=== PATIENT | female | born 1955 | race Caucasian/White ===

== ENCOUNTER 2016-09-14 20:20 | Emergency (ER) | payer OTHER ==
[~2016-09-14] VITALS: Ht 152.4 cm; Wt 75.0 kg
[~2016-09-14 20:20] MED LIST: ATOR20TA65 PO; CHOL2000 PO; Hydrocodone/Acetaminophen PO; Ibuprofen PO; MULT-892 PO; OMEG1CAP5 PO; RES15 PO; UBID1CAP52 PO
[2016-09-14 20:23] VITALS: BP 186/95; PULSE 84; RESP 20; O2SAT 98
--- NOTE | 2016-09-14 20:39 | ED.REPORT ---
HPI-Chest Pain 40 and Over Date of Service Sep 14, 2016 ED Provider: Cesario Esteves MD Patient is a 61 year old male who presents to the ED complaining of dull, achy, 4/10, constant, midline chest pain onset last night that is worsening today. She denies SOB, diaphoresis, or any other symptoms. She did not take aspirin today. She was admitted for chest pain with a negative stress test in 2012. She denies any recent illness. Nursing Notes Stated Complaint: CHEST PAIN Chief Complaint: Chest Pain Nursing Notes Reviewed: Yes Allergies: Coded Allergies: No Known Allergies (Verified , 06/01/05) Scheduled Atorvastatin Calcium (Atorvastatin Calcium) 20 Mg Tablet 20 MG PO DAILY Cholecalciferol (Vitamin D3) (Vitamin D) 2,000 Unit Capsule 2,000 UNIT PO DAILY Famotidine (Pepcid) 40 Mg Tablet 40 MG PO BID Multivitamin (Daily Value) 1 Each Tablet 1 EACH PO DAILY Ubidecarenone/Vit E Acetate (Co Q-10 100 mg Softgel) 1 Each Capsule 1 EACH PO DAILY Miscellaneous Medications Lactobacillus Combination No.4 (Probiotic) 1 Each Capsule 1 EACH PO Davey-3 Fatty Acids/Fish Oil (Fish Oil 1,200 mg Softgel) 1 Each Capsule 1 EACH PO Turmeric Root Extract (Turmeric) 500 Mg Capsule Unknown Dose PO General Time Seen by MD: 20:36 Chief Complaint Chest pain Hx Obtained From: Patient Arrived By: Walk-in Sudden in Onset?: Yes Onset Occurred: Yesterday Symptom Duration: Since onset Quality: Aching Past Medical History Past Medical History endometriosis Past Surgical History L shoulder D&C Reports: Cholecystectomy Reports: Tubal ligation Smoking History Never Smoker Social History Other Social History: Good social support Ambulatory Status Independent Review of Systems Respiratory: Denies: Shortness of breath Cardiovascular: Reports: Chest pain Skin: Denies Diaphoresis Complete sys rev & neg: except as marked. Physical Exam Initial Vital Signs Vital Signs (First) Date Time Temp Pulse Resp B/P Pulse Ox O2 Delivery O2 Flow Rate FiO2 09/14/16 20:23 36.1 84 20 186/95 98 Room Air Initial VS: Reviewed Head / Eyes: Atraumatic, Normocephalic Neck: Full range of motion Skin: Warm, Dry Neurologic: Alert, Oriented, Nonfocal Psychiatric: Mood/affect normal, Behavior normal, Normal thought content General/Constitutional: Awake, Alert, No acute distress, Well developed Respiratory / Chest: Breath sounds NL, Breath sounds = bilat, No respiratory distress Cardiovascular: Heart rate NL, Regular rhythm, Heart sounds NL, No gallop, No murmurs, No rubs Abdomen: Soft, Non-tender Lower Extremity / Pelvis / MS: Inspection NL, Tendon function NL Interpretation & Diagnostics Lab Results Interpretation Result Diagram: 09/14/16203909/14/162039 Test 09/14/16 20:40 09/14/16 22:45 White Blood Count 7.0th/mm3 (3.8-10.1) Red Blood Count 4.43mil/mm3 (3.90-5.20) Hemoglobin 14.3g/dL (12.0-15.6) Hematocrit 40.7% (35.0-46.0) Mean Corpuscular Volume 91.9fL (81-100) Mean Corpuscular Hemoglobin 32.3pg (27.0-35.0) Mean Corpuscular Hemoglobin Concent 35.1% (32.0-37.0) Red Cell Distribution Width 12.1% (12.3-15.4) Platelet Count 270bil/L (150-400) Neutrophils (%) (Auto) 53.6% (40-74) Lymphocytes (%) (Auto) 37.7% (14-46) Monocytes (%) (Auto) 6.3% (4-12) Eosinophils (%) (Auto) 2.0% (0-5) Basophils (%) (Auto) 0.3% (0-3) D-Dimer < 0.5mg/L (<0.50) Sodium Level 142mEq/L (134-144) Potassium Level 3.7mEq/L (3.5-5.2) Chloride Level 100mEq/L (97-108) Carbon Dioxide Level 28mmol/L (18-29) Blood Urea Nitrogen 12mg/dL (6-24) Creatinine 0.93mg/dL (0.57-1.00) Estimat Glomerular Filtration Rate 88mL/min (>59) Glucose Level 110mg/dL (60-99) Calcium Level 9.9mg/dL (8.5-10.1) Magnesium Level 2.2mg/dL (1.6-2.6) Total Bilirubin 0.4mg/dL (0.0-1.2) Aspartate Amino Transf (AST/SGOT) 23U/L (0-50) Alanine Aminotransferase (ALT/SGPT) 32U/L (0-32) Alkaline Phosphatase 72U/L (25-165) Total Protein 7.1g/dL (6.4-8.4) Albumin 4.7g/dL (3.4-5.0) Hold Leon Top Tube Received (Received) Troponin T < 0.010ug/L (0.0-0.011) ECG Interpretation ECG Interpretation: Sinus rate 80 Time: 20:52 Interpreted by: ED physician X-Ray Chest Interpretation Chest Xray Interpretation: IMPRESSION: Acute disease is not seen the upright portable chest. Dictated by: Cameron Aldana M.D. on 09/14/2016 at 21:00 Approved by: Cameron Aldana M.D. on 09/14/2016 at 21:01 View: Portable, 1 view Interpretation / Wet Read by: Interpret - Radiologist Re-Eval/Medical Decision Time of Eval: 22:12 Re-Evaluation/Progress Note: Rechecked patient. She reports she has had pain in her R calf since an exercise class and has been sore for a few days. Time of Eval: 23:35 Patient Status: Condition improved Re-Evaluation/Progress Note: Rechecked patient. Still experiencing mild chest pain. Discussed lab and imaging results. Discussed plan for discharge. Patient understands and agrees with plan. All questions addressed at this time. Counseled Regarding: Diagnosis, Lab results, Need for follow-up, When/why to return to ED Discharge & Departure Primary Impression: Non-cardiac chest pain Disposition: Home Patient Instructions: Esophageal Spasm (ED), Chest Pain (ED) Additional Instructions: Emergency Department evaluation included review, examination, labs, chest x-ray ECG and review of past records. No serious cause for chest pain is identified this evening. Given previous negative stress test normal ECG tonight and normal serial labs for heart muscle damage this is felt very unlikely to be from your heart. We advised taking Pepcid 40 mg daily for possible esophageal spasm. May use Tylenol as needed for pain. Return to emergency department for increasing chest pain shortness of breath or fevers. Follow up with primary care next week. Referrals: Natty Rodríguez ND (PCP) Scribe Attestation Portions of this note were transcribed by Paula Nixon. I, Dr. Esteves personally performed the history, physical exam and medical decision-making; I reviewed and confirmed the accuracy of the information in the transcribed note. Signed by: Paula Nixon 09/14/16, 3506 copies to: Natty Rodríguez ND, Donald L MD Sep 14, 2016 20:39 PAULA NIXON Sep 14, 2016 20:46
[2016-09-14 20:55] LABS: BASOPHILS % (AUTO) 0.3 % (0-3); MONOCYTES % (AUTO) 6.3 % (4-12); Mean Corpuscular Hemoglobin 32.3 pg (27.0-35.0); Mean Corpuscular Volume 91.9 fL (81-100); NEUTROPHILS % (AUTO) 53.6 % (40-74); Platelet Count 270 bil/L (150-400)
[2016-09-14 20:57] VITALS: BP 143/64; PULSE 89; RESP 14; O2SAT 97
[2016-09-14] MEDS ORDERED: OMEG1CAP99 PO (21:01)
[2016-09-14] MEDS ORDERED: LACT1CAP67 PO (21:01)
[2016-09-14] MEDS ORDERED: TURM500C7 PO (21:01)
[2016-09-14 21:02] VITALS: BP 138/68; PULSE 98; RESP 12; O2SAT 96
--- NOTE | 2016-09-14 21:02 | DRSVH ---
PROCEDURE: X-RAY CHEST ONE VIEW, PORTABLE ([id number]) INDICATIONS: chest pain TECHNIQUE: One view of the chest was acquired. COMPARISON: [facility], , CHEST 1VW (PORTABLE), 11/15/2012, 20:06. FINDINGS: Surgical changes and devices: traffic officer leads are seen over the chest. Lungs and pleura: No pleural effusions or pneumothorax. Lungs are clear. Mediastinum: Mediastinal contours appear normal. Heart size is normal. Bones and chest wall: No suspicious bony lesions. There is a very mild scoliosis convex to the right in the mid-to upper thoracic spine Overlying soft tissues appear unremarkable. IMPRESSION: Acute disease is not seen the upright portable chest. Dictated by: Cameron Aldana M.D. on 09/14/2016 at 21:00 Approved by: Cameron Aldana M.D. on 09/14/2016 at 21:01
[2016-09-14 21:19] LABS: TROPONIN T 0.01 ug/L (0.0-0.011)
[2016-09-14 21:30] LABS: Magnesium 2.2 mg/dL (1.6-2.6)
[2016-09-14 22:46] VITALS: BP 125/59; PULSE 76; RESP 15; O2SAT 95
[2016-09-14] MEDS ORDERED: FAMO40TA72 PO (23:43)
[2016-12-07] MEDS ORDERED: CHOL200025 PO (07:42)
== END 2016-09-15 00:04 | disposition home or self-care (01) ==
LOC: SED 20:20
DX: R07.89 Other chest pain (principal)

== ENCOUNTER 2016-12-07 11:28 | Day surgery (SDC) | payer OTHER ==
[~2016-12-07] VITALS: Ht 152.4 cm; Wt 74.0 kg
[~2016-12-07 11:28] MED LIST changes: +CHOL200025 PO; +FAMO40TA72 PO; -Hydrocodone/Acetaminophen PO; -Ibuprofen PO; +LACT1CAP67 PO; -OMEG1CAP5 PO; +OMEG1CAP99 PO; -RES15 PO; +Sodium Chloride LOK Flush 10 mL Syringe IV PRN; +TURM500C7 PO; +fentaNYL-PF 50 mCg/mL 2 mL Inj IVPUSH PRN
[2016-12-07] MEDS ORDERED: fentaNYL-PF 50 mCg/mL 2 mL Inj IVPUSH ONE (11:29)
[2016-12-07 12:09] VITALS: BP 133/75; PULSE 72; RESP 16; O2SAT 95
[2016-12-07] MEDS ORDERED: OMEP40CA36 PO (12:09)
[2016-12-07] MEDS: 0.9% Sodium Chloride 1,000 ML IV SCH ×2 (12:23→12:52)
[2016-12-07 13:05] VITALS: BP 129/71; PULSE 74; RESP 16; O2SAT 97
[2016-12-07 13:15] VITALS: BP 120/73; PULSE 74; RESP 16; O2SAT 95
[2016-12-07 13:24] VITALS: BP 141/76; PULSE 71; RESP 16; O2SAT 98
--- NOTE | 2016-12-07 23:02 | ENDO ---
[address] [address] ENDOSCOPY PROCEDURE PATIENT: STEPHY WALKER : 1955 MR#: [id number] ADMIT: 12/07/2016 JOB ID: [id number] DATE OF PROCEDURE: 12/07/2016 PROCEDURE: Esophagogastroduodenoscopy. INDICATION: Noncardiac chest pain. MISCELLANEOUS: Patient's ASA classification is II. Mallampati score is 2. INSTRUMENT USED: GIF-H180J. MEDICATIONS ADMINISTERED: 1. Versed mg. 2. Fentanyl 150 mcg. PROCEDURE DETAILS: After informed consent was obtained, the patient was brought into the GI suite, where she was placed on oxygen via nasal cannula and monitored with continuous pulse oximeter, telemetry, and blood pressure monitoring. A time-out was performed. Then, she was placed in the left lateral decubitus position. A bite block was placed. The standard EGD scope was inserted through the bite block and advanced under direct visualization to the second portion of duodenum without difficulty. FINDINGS: 1. Normal appearing duodenal bulb, first and second portion. 2. Normal appearing pylorus, antrum and gastric body. Multiple random biopsies were obtained. 3. Retroflexed views in the gastric body revealed a small hiatal hernia. Otherwise, normal appearing cardia and fundus. 4. The GE junction was at 37 cm. There was a short tongue of salmon-colored mucosa arising from the GE junction. Hiatal hernia was not appreciated from the esophagus. Multiple random biopsies were obtained in the distal esophagus. The remainder of the esophagus was otherwise unremarkable. IMPRESSION: 1. Sliding hiatal hernia. 2. Slightly irregular gastroesophageal junction. RECOMMENDATIONS: 1. Await biopsy results. 2. Continue proton pump inhibitor daily. 3. Proceed to colonoscopy. PROCEDURE PERFORMED: Colonoscopy secondary to history of colon polyps. Please see above for ASA classification, Mallampati score, and medications. INSTRUMENT USED: PCF-H180AL. PREPARATION QUALITY: Good. PROCEDURE DETAILS: After completion of the EGD exam, the patient was turned and a digital rectal exam was performed and was unremarkable. The colonoscope was then inserted into the rectum and advanced under direct visualization to the cecum, which identified by the presence of the ileocecal valve and appendiceal orifice. Once the cecum was reached colonoscope was withdrawn back to the rectum and mucosa and lumen were examined. In the rectum, retroflexion was performed. Following retroflexion, remaining air in the rectum was suctioned, and procedure was completed. FINDINGS: In the transverse colon there is an approximately 5 mm flat polyp that was removed with a hot snare. Following removal with the hot snare there appeared to be a small amount of tissue at the polypectomy site that appeared to have been cauterized but not removed. This was then removed with cold biopsy forceps. IMPRESSION: 1. Transverse colon polyp. 2. Otherwise normal exam from rectum to cecum. RECOMMENDATIONS: 1. Avoid nonsteroidal anti-inflammatory drugs and anticoagulants for 72 hours. 1. Repeat colonoscopy in five years. COMPLICATIONS: None. ESTIMATED BLOOD LOSS: Less than 5 mL.
--- NOTE | 2016-12-08 10:24 | PATH ---
SURGICAL PATHOLOGY Attending Physician:Jose Luis Valentine CASE STATUS: Signed Out PATIENT NAME: STEPHY WALKER PID: [id number] : 1955 DATE COLLECTED:12/07/2016 19:18 SPECIMEN: 1: Esophagus, Biopsy 2: Gastric, Biopsy 3: Colon, Biopsy CLINICAL HISTORY: GERD, HX COLON POLYPS, ? BARRETTS 1). DISTAL ESOPHAGUS BIOPSY 2). GASTRIC BIOPSY 3). TRANSVERSE COLON POLYP FINAL DIAGNOSIS: 1.DISTAL ESOPHAGUS BIOPSY: FRAGMENTS OF SQUAMOUS EPITHELIUM AND GASTRIC OXYNTIC-TYPE MUCOSA NEGATIVE FOR SPECIALIZED METAPLASIA OF RABAGO' S-TYPE ESOPHAGUS. Negative for dysplasia and malignancy. Negative for squamous intraepithelial eosinophils. 2.GASTRIC BIOPSY: FOCAL MINIMAL CHRONIC GASTRITIS INVOLVING ANTRAL AND FUNDIC MUCOSA. Negative for evidence of Helicobacter by H&E stain. Negative for intestinal metaplasia. Negative for dysplasia and malignancy. 3.TRANSVERSE COLON POLYP: SESSILE SERRATED ADENOMA INVOLVING SINGLE BIOPSY FRAGMENT. ICD10 D12.3 K21.0 GROSS DESCRIPTION: The specimen is received in three formalin filled containers labeled with the patient's name. 1). The specimen is sublabeled "distal esophagus" and consists of 3 portions of tissue which aggregate to 0.2 x 0.2 x 0.2 CM. The specimen is entirely submitted in cassette 1A. 2). The specimen is sublabeled "gastric" and consists of portions of tissue which aggregate to 0.3 x 0.3 x 0.2 CM. The specimen is entirely submitted in cassette 2A. 3). The specimen is sublabeled "transverse colon polyp" and consists of 3 portions of tissue which aggregate to 0.3 x 0.3 x 0.2 CM. The specimen is entirely submitted in cassette 3A. 12/07/2016 [facility] MICRO DESCRIPTION: See diagnosis. ICD-9 CODES: CPT CODES: 1: 17072 2: 89169 3: 94701 Electronically Signed Out Cesario Jackman MD [facility] [address], [place] [address] Technical component performed at [facility], [facility] [address], [address]
== END 2016-12-07 23:59 | disposition home or self-care (01) ==
LOC: END 11:28
PROVIDERS: ATTEND Internal Medicine Gastroenterology
DX: Z12.11 Encounter for screening for malignant neoplasm of colon (principal); Z86.010 Personal history of colon polyps; D12.3 Benign neoplasm of transverse colon; K29.50 Unspecified chronic gastritis without bleeding; K44.9 Diaphragmatic hernia without obstruction or gangrene; G47.33 Obstructive sleep apnea (adult) (pediatric)
CPT/HCPCS: 43239; 45385; 99153; G0500; J2250; J3010; J7030